=== PATIENT | male | born 1975 | race Caucasian/White ===

== ENCOUNTER → 2021-08-27 | Outpatient (CLI) | payer OTHER ==
[~2021-08-27] MED LIST: AUGMENTIN 875-1 EACH PO; BACTRIM DS TAB1 EACH PO; CLOTRIMAZOLE-BETAMET TOP; FLUTICASONE SPRAY; IBU800 MG PO; NEURONTIN400 MG PO; NEURONTIN600 MG PO; NORCO 7.5-3251 EACH PO; VITAMIN D250000 UNIT PO
[2021-08-27 11:03] LABS: BUN/CREATININE RATIO 14 (0-10)
== END ==
LOC: OPSV2 09:53
PROVIDERS: Podiatrist Foot & Ankle Surgery
DX: Z01.812 Encounter for preprocedural laboratory examination (principal); L72.8 Other follicular cysts of the skin and subcutaneous tissue
CPT/HCPCS: 36415; 80048

== ENCOUNTER → 2021-08-29 | Day surgery (SDC) | payer OTHER | END | disposition home or self-care (01) | LOC: OR 06:54 | DX: M72.8 Other fibroblastic disorders (principal); R22.41 Localized swelling, mass and lump, right lower limb; G58.8 Other specified mononeuropathies; E11.9 Type 2 diabetes mellitus without complications; E55.9 Vitamin D deficiency, unspecified; F17.210 Nicotine dependence, cigarettes, uncomplicated; M54.50 Low back pain, unspecified; G89.29 Other chronic pain; Z20.822 Contact with and (suspected) exposure to COVID-19; Z91.013 Allergy to seafood; K21.9 Gastro-esophageal reflux disease without esophagitis; K58.9 Irritable bowel syndrome, unspecified | CPT/HCPCS: 82962; J0690; J1100; J1170; J1885; J2250; J2405; J2704; J2795; J3010; J3370; J7120; Q4133 ==

== ENCOUNTER → 2021-10-10 | Outpatient (CLI) | payer OTHER | LOC: EXRD 09:58 | DX: M25.512 Pain in left shoulder (principal) | CPT/HCPCS: 73030 ==

== ENCOUNTER → 2021-10-31 | Outpatient (CLI) | payer OTHER ==
[~2021-10-31] MED LIST changes: +BACTROBAN OINT22 GM EXT; +CLEOCIN HCL300 MG PO
== END ==
LOC: DTC 09:10
DX: E11.9 Type 2 diabetes mellitus without complications (principal); Z71.3 Dietary counseling and surveillance
CPT/HCPCS: G0109

== ENCOUNTER 2021-11-05 14:52 | Emergency (ER) | payer OTHER ==
[~2021-11-05 14:52] MED LIST changes: -BACTROBAN OINT22 GM EXT; -CLEOCIN HCL300 MG PO
[2021-11-05] MEDS ORDERED: CLEOCIN HCL300 MG PO (16:20)
[2021-11-05] MEDS ORDERED: BACTROBAN OINT22 GM EXT (16:20)
== END 2021-11-05 16:34 | disposition home or self-care (01) ==
LOC: ER1 14:52
DX: E10.621 Type 1 diabetes mellitus with foot ulcer (principal); L97.519 Non-pressure chronic ulcer of other part of right foot with unspecified severity; F17.210 Nicotine dependence, cigarettes, uncomplicated
CPT/HCPCS: 99283

== ENCOUNTER → 2022-02-11 | Outpatient (CLI) | payer OTHER ==
[~2022-02-11] MED LIST changes: +BACTROBAN OINT22 GM EXT; +CLEOCIN HCL300 MG PO
== END ==
LOC: EXRD 15:11
DX: M79.642 Pain in left hand (principal)
CPT/HCPCS: 73130